=== PATIENT | male | born 1930 | race Caucasian/White ===

== ENCOUNTER 2021-01-13 10:56 | Emergency (ER) | payer OTHER ==
[2021-01-13 11:08] VITALS: BMI 32.3
[2021-01-13] MEDS ORDERED: ACETAMINOPHEN 500 MG TABLET (FP) PO ONE (11:47)
[2021-01-13] MEDS ORDERED: ACETAMINOPHEN 325 MG TABLET (FP) ONE (11:50)
[2021-01-13] MEDS ORDERED: DIPHTH,PERTUSS(ACELL),TET 0.5 ML DISP.SYRIN IM ONE ×2 (11:51→11:56)
[2021-01-13 15:19] VITALS: BP 150/82; PULSE 72; TEMP 98.2
== END 2021-01-13 14:00 | disposition home or self-care (01) ==
LOC: JER 10:56
PROC: 3E0234Z Introduction of Serum, Toxoid and Vaccine into Muscle, Percutaneous Approach (ICD-10-PCS; principal; 2021-01-13)
PROC: 0HQ0XZZ Repair Scalp Skin, External Approach (ICD-10-PCS; 2021-01-13)
DX: S01.81XA Laceration without foreign body of other part of head, initial encounter (principal); W07.XXXA Fall from chair, initial encounter
CPT/HCPCS: 12002-25; 70450-TC; 72125-TC; 90471; 90715; 99284-25

== ENCOUNTER 2021-11-03 12:10 | Inpatient (IN) | payer OTHER, BC ==
[2021-11-03 13:11] LABS: INR 1.78 (0.83-1.09); PROTHROMBIN TIME (PATIENT) 20.6 SEC (9.7-13.0)
[2021-11-03 13:12] LABS: HEMOGLOBIN 13.8 G/dL (11.7-16.9); MCH 30.7 pg (25.7-33.7); MCHC 34.4 g/dl (32.0-35.9); MEAN CELL VOLUME 89.2 fl (80-96); MEAN PLT VOLUME 8.6 fl (7.5-11.1); PLATELET COUNT 177.2 10^3/uL (134-434); RBC 4.48 10^6/uL (4.00-5.60); RDW 15.2 % (11.9-15.9); WHITE BLOOD COUNT 7.3 10^3/uL (4.0-10.8)
[2021-11-03 13:18] LABS: CALCIUM 9.6 mg/dl (8.5-10); CREATININE 1.6 mg/dl (0.55-1.3); TOT PROT 7.1 g/dl (6.4-8.2)
[2021-11-03] MEDS ORDERED: LACTATED RINGERS SOLUTION 1000 ML INFUS.BAG IV ONE (13:52)
[2021-11-03 14:08] LABS: N-TERMINAL BNP 2909.2 pg/ml (5-450)
[2021-11-03 19:21] VITALS: RESP 17
[2021-11-03] MEDS ORDERED: POLYETHYLENE GLYCOL (HEALTHYLAX) 3350 17 GM PACKET PO PRN (19:24)
[2021-11-03] MEDS ORDERED: ACETAMINOPHEN 325 MG TABLET (FP) PO PRN (19:24)
[2021-11-03 20:41] VITALS: BMI 68.7
[2021-11-03] MEDS ORDERED: FUROSEMIDE 40 MG/4 ML INJECTABLE VIAL IVPUSH ONE (23:10)
[2021-11-04 06:29] VITALS: BP 138/76; PULSE 91; TEMP 98
[2021-11-04] MEDS ORDERED: metFORMIN HCL 500 MG TABLET (FP) PO SCH (07:00)
[2021-11-04 07:22] LABS: BILIRUBIN,TOTAL 2.2 mg/dl (0.2-1); CALCIUM 9.3 mg/dl (8.5-10); CREATININE 1.4 mg/dl (0.55-1.3); MAGNESIUM 1.4 mg/dL (1.8-2.4)
[2021-11-04] MEDS ORDERED: LOSARTAN POTASSIUM 50 MG TABLET PO SCH (10:00)
[2021-11-04] MEDS ORDERED: metoPROLOL SUCCINATE 25 MG TAB.SR.24H (FP) PO SCH (10:00)
[2021-11-04] MEDS ORDERED: DOCUSATE SODIUM 100 MG CAPSULE (FP) PO SCH (10:00)
[2021-11-04] MEDS ORDERED: APIXABAN 5 MG TABLET PO SCH (10:00)
[2021-11-04] MEDS ORDERED: ATORVASTATIN CA 20 MG TABLET (FP) PO SCH (22:00)
== END 2021-11-04 11:18 | disposition home or self-care (01) | DRG 291 ==
LOC: FER 12:10 → FM/S 17:57
PROVIDERS: ADMIT Hospitalist
DX: I11.0 Hypertensive heart disease with heart failure (principal); I50.33 Acute on chronic diastolic (congestive) heart failure; E78.5 Hyperlipidemia, unspecified; I25.10 Atherosclerotic heart disease of native coronary artery without angina pectoris; Z98.61 Coronary angioplasty status; E11.9 Type 2 diabetes mellitus without complications; I48.91 Unspecified atrial fibrillation; R06.02 Shortness of breath; K59.00 Constipation, unspecified; Z79.84 Long term (current) use of oral hypoglycemic drugs
CPT/HCPCS: 36415; 71045-TC-FY; 74176-TC; 80048; 80053; 81003; 82247; 82962; 83735; 83880; 84443; 84484; 85025; 85610; 85730; 87086; 93005; 97116-GP; 97162-GP; 99285-25; C9803-CS; U0003; U0005